=== PATIENT | male | born 1985 | race African-American/Black ===

== ENCOUNTER 2020-11-21 11:00 | Emergency (ER) | payer OTHER ==
[~2020-11-21] VITALS: Ht 175.3 cm; Wt 73.0 kg
[2020-11-21 11:06] VITALS: BP 144/86
[2020-11-21] MEDS ORDERED: ONDANSETRON PF 4 MG/2 ML VIAL. IVP ONE (11:30)
[2020-11-21] MEDS ORDERED: IV NORMAL SALINE 1,000ML 1,000 ML IV ONE (11:30)
--- NOTE | 2020-11-21 11:34 | EKG ---
[address] [address] Test Date: 2020-11-21 Test Time: 11:12:22 Pat Name: BOB ESCOTO Department: Room: Gender: Project Buyer: JOSE : 1985 Requested By: ZUNILDA CARRANZA Order Number: [id number] Reading MD: Measurements Intervals [place] Rate: 82 P: 51 LA: 180 QRS: -32 QRSD: 92 T: 8 QT: 386 QTc: 454 Interpretive Statements SINUS RHYTHM ABNORMAL LEFT AXIS DEVIATION LEFT ANTERIOR FASCICULAR BLOCK ABNORMAL ECG RI6.02 No previous ECG available for comparison
--- NOTE | 2020-11-21 11:36 | PHYS DOC ---
Past History Past Surgical History: No Surgical History (ZUNILDA CARRANZA APRN) Alcohol Use: None (ZUNILDA CARRANZA APRN) General Adult EDM: Chief Complaint: CHEST PAIN HPI: HPI: Patient is a 35-year-old male being seen in the ER for right-sided chest pain that started last night. Pain radiates to his back. He rates his pain 7 out of 10. Is worse with inspiration and movement. No relieving factors. Patient has no medical history. No family cardiac history. Patient denies nausea, vomiting, diarrhea, shortness of breath, cough, fevers, injuries, heavy lifting. Patient's vital signs are stable. (ZUNILDA CARRANZA APRN) Review of Systems: Review of Systems: 14 body systems of the review of systems have been reviewed. See HPI for pertinent positive and negative responses, otherwise all other systems are ne gative, nonpertinent or noncontributory (ZUNILDA CARRANZA APRN) Allergies: Allergies: Allergies Coded Allergies Type Severity Reaction Last Updated Verified No Known Drug Allergies 11/21/20 No (ZUNILDA CARRANZA APRN) Physical Exam: PE: Constitutional: Well developed, well nourished, no acute distress, non-toxic appearance. [] HENT: Normocephalic, atraumatic, bilateral external ears normal, oropharynx moist, no oral exudates, nose normal. [] Eyes: PERRL, EOMI, conjunctiva normal, no discharge. [] Neck: Normal range of motion, no tenderness, supple, no stridor. [] Cardiovascular:Heart rate regular rhythm, no murmur [] Lungs & Thorax: Bilateral breath sounds clear to auscultation [] Abdomen: Bowel sounds normal, soft, no tenderness, no masses, no pulsatile masses. [] Skin: Warm, dry, no erythema, no rash. [] Back: Normal range of motion Extremities: No tenderness, no cyanosis, no clubbing, ROM intact, no edema. [] Neurologic: Alert and oriented X 3, normal motor function, normal sensory function, no focal deficits noted. [] Psychologic: Affect normal, judgement normal, mood normal. [] (ZUNILDA CARRANZA APRN) Current Patient Data: Labs: Laboratory Tests Test 11/21/20 11:11 White Blood Count 6.9 x10^3/uL Red Blood Count 4.80 x10^6/uL Hemoglobin 14.4 g/dL Hematocrit 43.3 % Mean Corpuscular Volume 90 fL Mean Corpuscular Hemoglobin 30 pg Mean Corpuscular Hemoglobin Concent 33 g/dL Red Cell Distribution Width 13.8 % Platelet Count 245 x10^3/uL Neutrophils (%) (Auto) 60 % Lymphocytes (%) (Auto) 24 % Monocytes (%) (Auto) 12 % Eosinophils (%) (Auto) 3 % Basophils (%) (Auto) 1 % Neutrophils # (Auto) 4.2 x10^3uL Lymphocytes # (Auto) 1.7 x10^3/uL Monocytes # (Auto) 0.8 x10^3/uL Eosinophils # (Auto) 0.2 x10^3/uL Basophils # (Auto) 0.1 x10^3/uL Sodium Level 141 mmol/L Potassium Level 4.0 mmol/L Chloride Level 105 mmol/L Carbon Dioxide Level 31 mmol/L Anion Gap 5 Blood Urea Nitrogen 19 mg/dL Creatinine 1.1 mg/dL Estimated GFR (Cockcroft-Gault) 91.6 BUN/Creatinine Ratio 17 Glucose Level 100 mg/dL Calcium Level 9.2 mg/dL Total Bilirubin 0.3 mg/dL Aspartate Amino Transf (AST/SGOT) 14 U/L Alanine Aminotransferase (ALT/SGPT) 22 U/L Alkaline Phosphatase 67 U/L Troponin I Quantitative < 0.017 ng/mL Total Protein 7.2 g/dL Albumin 4.0 g/dL Albumin/Globulin Ratio 1.3 Current Medications Medications (Trade) Dose Ordered Sig/Xuan Route PRN Reason Start Time Stop Time Status Last Admin Dose Admin Sodium Chloride 1,000 ml @ 1,000 mls/hr 1X ONCE IV 11/21/20 11:30 11/21/20 12:29 11/21/20 11:54 Ondansetron HCl (Zofran) 4 mg 1X ONCE IVP 11/21/20 11:30 11/21/20 11:49 DC 11/21/20 11:54 Fentanyl Citrate (Fentanyl 2ml Vial) 50 mcg 1X ONCE IVP 11/21/20 11:30 11/21/20 11:49 DC 11/21/20 11:54 Vital Signs: Vital Signs Date Time Temp Pulse Resp B/P (MAP) Pulse Ox O2 Delivery O2 Flow Rate FiO2 11/21/20 11:06 98.4 74 16 144/86 97 Room Air (ZUNILDA CARRANZA APRN) EKG: EKG: EKG performed by ER staff at 1112 shows sinus rhythm, no STEMI read by Dr. Romeo at 1115. [] (ZUNILDA CARRANZA APRN) Radiology/Procedures: Radiology/Procedures: PROCEDURE: PORTABLE CHEST 1V Exam Date: 11/21/2020 11:33 AM XR CHEST 1V Indication: Reason: cp / Spl. Instructions: / History: . FINDINGS/ IMPRESSION: The cardiac silhouette and pulmonary vasculature are within normal limits. There is no focal consolidation, pleural effusion or pneumothorax. The visualized osseous structures are intact. Electronically signed by: Cora Rubio MD (11/21/2020 12:04 PM) [facility] DICTATED AND SIGNED BY: CORA RUBIO MD DATE: 11/21/20 1200 CC: ZUNILDA CARRANZA APRN; PCP,UNKNOWN ~MTH0 0 [] (ZUNILDA CARRANZA APRN) Heart Score: C/O Chest Pain: Yes HEART Score for Chest Pain: HEART Score for Chest Pain Response (Comments) Value History Slighlty/Non-Suspicious 0 ECG Normal 0 Age < 45 0 Risk Factors No Risk Factors 0 Troponin < Normal Limit 0 Total 0 Risk Factors: Risk Factors: DM, Current or recent (<one month) smoker, HTN, HLP, family history of CAD, obesity. Risk Scores: Score 0 - 3: 2.5% MACE over next 6 weeks - Discharge Home Score 4 - 6: 20.3% MACE over next 6 weeks - Admit for Clinical Observation Score 7 - 10: 72.7% MACE over next 6 weeks - Early Invasive Strategies (ZUNILDA CARRANZA APRN) Course & Med Decision Making: Course & Med Decision Making Pertinent Labs and Imaging studies reviewed. (See chart for details) Patient is a 35-year-old male delivered seen in the ER for right-sided chest pain. Patient's physical exam is reassuring. His chest pain is worse with inspiration and movement, and this is typically seen with a chest wall pain. Work-up in the ER consisted of blood work, EKG, chest x-ray. Work-up in the ER is unremarkable. Chest x-ray negative. EKG is sinus rhythm. Patient treated in the ER with fluids, nausea medication, pain medication. Patient advised to take anti-inflammatory medications at home and follow-up with primary care provider. I discussed with patient all findings and diagnostic testing as well as the need to follow-up with PCP for further evaluation and treatment or return to the ER if any new or worsening symptoms. Strict return precautions were also discussed at length. Patient voiced understanding and agreement with the plan. Patient is hemodynamically stable at the time of disposition. (ZUNILDA CARRANZA APRN) Dragon Disclaimer: Alphonse Disclaimer: This electronic medical record was generated, in whole or in part, using a voice recognition dictation system. (ZUNILDA CARRANZA APRN) Attending Co-Sign The patient was seen and interviewed as well as examined at the bedside. The chart was reviewed. The case was discussed. Agree with the plan of care. (CANDY ROMEO DO) Departure Departure: Impression: Primary Impression: Chest pain Qualified Codes: R07.1 - Chest pain on breathing Disposition: HOME / SELF CARE / HOMELESS Condition: GOOD Referrals: PCP,UNKNOWN (PCP) Patient Instructions: Chest Pain (Nonspecific), Chest Wall Pain Additional Instructions: You were seen in the ER today for right-sided chest pain that is worse with inspiration and movement. Your work-up in the ER was unremarkable. Your physical exam was reassuring and your vital signs were stable. At this time while in the ER it does not appear that you are experiencing acute coronary syndrome. It is likely that your chest pain is chest wall pain since it is worse with inspiration and movement. You can take anti-inflammatory medications to help with your pain. You need to follow-up with your primary care provider on Monday regarding your ER visit. If you develop worsening of your chest pain, shortness of breath, palpitations, lightheadedness, intractable nausea or vomiting, high fevers refractory to treatment or any new concerns please return to the ER. EMERGENCY DEPARTMENT GENERAL DISCHARGE INSTRUCTIONS Thank you for coming to [facility] (ED) today and trusting us with you care. We trust that you had a positivie experience in our Emergency Department. If you wish to speak to the department management, you may call the director at [phone]. YOUR FOLLOW UP INSTRUCTIONS ARE FOLLOWS: 1. Do you have a private Doctor? If you do not have a private doctor, please ask for a resource list of physicians or clinics that may be able to assist you with follow up care. 2. The Emergency Physician has interpreted your x-rays. The X-Ray specialist will also review them. If there is a change in the findings, you will be notified in 48 hours when at all possible. 3. A lab test or culture has been done, your results will be reviewed and you will be notified if you need a change in treatment. ADDITIONAL INSTRUCTIONS AND INFORMATION: 1. Your care today has been supervised by a physician who is specially trained in emergency care. Many problems require more than one evaluation for a complete diagnosis and treatment. We recommend that you schedule your follow up appointment as recommended to ensure complete treatment of you illness or injury. If you are unable to obtain follow up care and continue to have a problem, or if your condition worsens, we recommend that you return to the ED. 2. We are not able to safely determine your condition over the phone nor are we able to give sound medical advice over the phone. For these safety reasons, if you call for medical advice we will ask you to come to the ED for further evaluation. 3. If you have any questions regarding these discharge instructions please call the ED at [phone]. SAFETY INFORMATION: In the interest of safety, wellness, and injury prevention; we encourage you to wear your sealbelt, if you smoke; quite smoking, and we encourage family to use a protective helmet for bicycling and other sporting events that present an increased risk for head injury. IF YOUR SYMPTOMS WORSEN OR NEW SYMPTOMS DEVELOP, OR YOU HAVE CONCERNS ABOUT YOUR CONDITION; OR IF YOUR CONDITION WORSENS WHILE YOU ARE WAITING FOR YOUR FOLLOW UP APPOINTMENT; EITHER CONTACT YOUR PRIMARY CARE DOCTOR, THE PHYSICIAN WHOSE NAME AND NUMBER YOU WERE GIVEN, OR RETURN TO THE ED IMMEDIATELY. Scripts Ibuprofen (IBUPROFEN) 600 Mg Tablet 600 MG PO Q6HRS for pain for 7 Days, #28 TAB 0 Refills Prov: ZUNILDA CARRANZA APRN 11/21/20 ZUNILDA CARRANZA APRN Nov 21, 2020 11:36 CANDY ROMEO DO Nov 21, 2020 17:16
[2020-11-21 11:39] LABS: BASO # 0.1 x10^3/uL (0.0-0.2); BASO % 1 % (0-3); EOS # 0.2 x10^3/uL (0.0-0.7); EOS % 3 % (0-3); HEMATOCRIT 43.3 % (39.0-53.0); HEMOGLOBIN 14.4 g/dL (13.0-17.5); LYMPH # 1.7 x10^3/uL (1.0-4.8); LYMPH % 24 % (24-48); MEAN CORPUSCULAR HEMOGLOBIN 30 pg (25-35); MEAN CORPUSCULAR HGB CONC 33 g/dL (31-37); MEAN CORPUSCULAR VOLUME 90 fL (79-100); MONO # 0.8 x10^3/uL (0.0-1.1); MONO % 12 % (0-9); NEUT # 4.2 x10^3uL (1.8-7.7); NEUT % 60 % (31-73); PLATELET COUNT 245 x10^3/uL (140-400); RED CELL DISTRIBUTION WIDTH 13.8 % (11.5-14.5); WHITE BLOOD COUNT 6.9 x10^3/uL (4.0-11.0)
[2020-11-21 11:51] LABS: CALCIUM 9.2 mg/dL (8.5-10.1); CREATININE 1.1 mg/dL (0.7-1.3); GFR 91.6
[2020-11-21 11:56] LABS: ALBUMIN/GLOBULIN RATIO 1.3 (1.0-1.7); TOTAL BILIRUBIN 0.3 mg/dL (0.2-1.0); TOTAL PROTEIN 7.2 g/dL (6.4-8.2)
--- NOTE | 2020-11-21 12:07 | RAD ---
Exam Date: 11/21/2020 11:33 AM XR CHEST 1V Indication: Reason: cp / Spl. Instructions: / History: . FINDINGS/ IMPRESSION: The cardiac silhouette and pulmonary vasculature are within normal limits. There is no focal consolidation, pleural effusion or pneumothorax. The visualized osseous structures are intact. Electronically signed by: Chaz Rubio MD (11/21/2020 12:04 PM) [facility]
[2020-11-21] MEDS ORDERED: KETOROLAC 15 MG/ML VIAL. IVP ONE (12:30)
[2020-11-21] MEDS ORDERED: IBUP600T16 PO (13:57)
== END 2020-11-21 13:57 | disposition home or self-care (01) ==
LOC: ER 11:00
DX: R07.1 Chest pain on breathing (principal)
CPT/HCPCS: 36415; 71045; 80053; 84484; 85025; 93005; 96361; 96374; 96375; 99285; J1885; J2405; J3010; J7030